=== PATIENT | male | born 1995 | race Hispanic/Latino ===

== ENCOUNTER 2018-02-03 10:17 | Inpatient (IN) | payer SELFPAY ==
[2018-02-03 11:12] LABS: #Eosinphils 0.2 thou/uL (0.0-0.7); #Lymphocytes 1.3 thou/uL (1.20-3.40); #Monocytes 0.7 thou/uL (0.11-0.59); %Basophils 0.4 % (0.0-1.0); %Lymphocytes 12.8 % (21.0-51.0); %Monocytes 6.9 % (0.0-10.0); %Neutrophils 77.9 % (42.0-75.0); Mean Corpuscular HGB CONC 34.7 g/dL (32.0-36.0); Mean Corpuscular Hemoglobin 30.3 pg (27.0-31.0); Mean Corpuscular Volume 87.4 fl (80.0-94.0); Mean Platelet Volume 7.5 fL (7.4-10.4); Platelet Count 224 thou/uL (130-400); RBC Distribution Width 11.7 % (11.5-14.5); Red Blood Cell (RBC) Count 5.29 mill/uL (4.70-6.10); White Blood Cell (WBC) Count 10.2 thou/uL (4.8-10.8)
[2018-02-03 11:33] LABS: ALT (SGPT) 13 U/L (8-55); AST (SGOT) 17 U/L (5-34); Albumin 4.8 g/dL (3.5-5.0); Alkaline Phosphatase 96 U/L (40-150); Anion Gap 13 mmol/L (10-20); BUN (Urea Nitrogen) 14 mg/dL (8.9-20.6); Bilirubin, Total 0.8 mg/dL (0.2-1.2); Calc. Creatinine Clearance 0 mL/min (70-130); Carbon Dioxide 25 mmol/L (22-29); Chloride 100 mmol/L (98-107); Estimated GFR-MDRD Greater than 90; Globulin 3.6 g/dL (2.4-3.5); Glucose 166 mg/dL (70-105); Protein, Total 8.4 g/dL (6.0-8.3); Sodium 134 mmol/L (136-145)
[2018-02-03] MEDS ORDERED: cefTRIAXone\\ROCEPHIN 2 GM VIAL ONE (11:37)
--- NOTE | 2018-02-03 12:18 | RAD ---
RIGHT FOOT THREE VIEWS: HISTORY: Right foot wound. FINDINGS: Lisfranc joint alignment is anatomic. Pes planus is evident on the lateral view. No acute fracture, dislocation, or soft tissue gas is apparent. No aggressive osseous erosion. Soft tissue swelling i s suggested about the forefoot. IMPRESSION: 1. Soft tissue swelling. 2. Pes planus. 3. No acute osseous abnormalities demonstrated. POS: [facility]
[2018-02-03] MEDS ORDERED: Acetaminophen 325 MG TAB PO PRN (12:52)
[2018-02-03] MEDS ORDERED: Ondansetron HCl/PF 4 MG/2 ML Vial IVP PRN (12:52)
[2018-02-03] MEDS ORDERED: Ondansetron ODT 4 MG TAB SL PRN (12:52)
[2018-02-03 13:18] VITALS: BMI 24.0
[2018-02-04] MEDS ORDERED: HYDROcodone/Acetaminophen 5/325 mg Tablet PO PRN (08:13)
[2018-02-04] MEDS ORDERED: Acetaminophen 325 MG TAB PO PRN (08:13)
[2018-02-04] MEDS ORDERED: Ondansetron ODT 4 MG TAB PO PRN (08:13)
[2018-02-04] MEDS ORDERED: Ondansetron HCl/PF 4 MG/2 ML Vial IVP PRN (08:13)
[2018-02-04 08:29] LABS: #Eosinphils 0.4 thou/uL (0.0-0.7); #Lymphocytes 1.8 thou/uL (1.20-3.40); #Monocytes 0.8 thou/uL (0.11-0.59); #Neutrophils 3.7 thou/uL (1.40-6.50); %Basophils 0.1 % (0.0-1.0); %Eosinophils 6.6 % (0.0-10.0); %Lymphocytes 26.4 % (21.0-51.0); %Monocytes 12.3 % (0.0-10.0); %Neutrophils 54.6 % (42.0-75.0); Mean Corpuscular HGB CONC 34.7 g/dL (32.0-36.0); Mean Corpuscular Hemoglobin 30.2 pg (27.0-31.0); Mean Corpuscular Volume 87.1 fl (80.0-94.0); Platelet Count 221 thou/uL (130-400); RBC Distribution Width 11.7 % (11.5-14.5); Red Blood Cell (RBC) Count 4.95 mill/uL (4.70-6.10); White Blood Cell (WBC) Count 6.8 thou/uL (4.8-10.8)
[2018-02-04 08:53] LABS: Anion Gap 14 mmol/L (10-20); BUN (Urea Nitrogen) 16 mg/dL (8.9-20.6); Calc. Creatinine Clearance 124 mL/min (70-130); Calcium 9.8 mg/dL (7.8-10.44); Carbon Dioxide 26 mmol/L (22-29); Chloride 104 mmol/L (98-107); Estimated GFR-MDRD Greater than 90; Glucose 91 mg/dL (70-105); Potassium 4.8 mmol/L (3.5-5.1); Sodium 139 mmol/L (136-145)
[2018-02-04] MEDS: Cefepime 2 GM in Sodium Chloride 0.9% 100 ML IVPB SCH ×2 (09:13→20:26)
[2018-02-04] MEDS: Sodium Chloride 0.9% 1,000 ML IV SCH (09:13)
[2018-02-04] MEDS: Famotidine 20 MG TAB PO SCH ×2 (09:21→20:25)
[2018-02-04] MEDS: HYDROcodone/Acetaminophen 5/325 mg Tablet PO PRN (10:48)
--- NOTE | 2018-02-04 12:03 | PDOC.PN ---
- Subjective Encounter Start Date: 02/04/18 Encounter Start Time: 08:45 follow up for cellulitis good. autumn,t no f/c, no N/V/D/C jeny abx, no aidan. draining more all systems reviewed and neg x as above - Objective Resuscitation Status: Resuscitation Status FULL:Full Resuscitation MAR Reviewed: Yes Vital Signs & Weight: Vital Signs (12 hours) Temp Pulse Resp BP Pulse Ox 02/04/18 11:33 98.2 F 65 18 117/55 L 98 02/04/18 08:00 98.1 F 62 18 02/04/18 07:40 98.1 F 62 18 108/63 98 02/04/18 04:00 98.1 F 60 14 106/54 L Weight Admit Weight 149 lb Weight 149 lb I&O: 02/03/18 02/04/18 02/05/18 06:59 06:59 06:59 Intake Total 360 10 Balance 360 10 Result Diagrams: 02/04/18 08:22 02/04/18 08:22 Phys Exam - Physical Examination Constitutional: NAD HEENT: PERRLA, moist MMs, sclera anicteric, oral pharynx no lesions Neck: no nodes, no JVD, supple, full ROM Respiratory: no wheezing, no rales, no rhonchi, clear to auscultation bilateral Cardiovascular: RRR Gastrointestinal: soft, non-tender, no distention, positive bowel sounds Musculoskeletal: no edema, pulses present Neurological: non-focal, normal sensation, moves all 4 limbs Lymphatic: no nodes Psychiatric: normal affect, A&O x 3 Skin: no rash, normal turgor, cap refill <2 seconds Deviation from normal: dorsal goot with purplish discoloraion, well demarcated, purulent drainage Dx/Plan (1) Cellulitis of right foot Code(s): L03.115 - CELLULITIS OF RIGHT LOWER LIMB Status: Acute (2) Abscess of right foot Code(s): L02.611 - CUTANEOUS ABSCESS OF RIGHT FOOT Status: Acute (3) Staph aureus infection Code(s): A49.01 - METHICILLIN SUSCEP STAPH INFECTION, UNSP SITE Status: Acute - Plan cont current plan of care, continue antibiotics wound care * .
--- NOTE | 2018-02-04 12:43 | HP ---
HISTORY OF PRESENT ILLNESS: A 22-year-old male, healthy, was barefoot four or five days ago and inju red his right foot. He frequently goes barefoot. He developed a worsening infection in his right fo ot with purulent drainage, was admitted to the hospital by Hospitalist Service. Plain x-rays were un remarkable for any bony involvement. White count was 10, hemoglobin 16. Basic metabolic profile nor mal. I have been asked to see regarding this infection. He has been started on vancomycin and cefep dedra. Cultures were submitted yesterday. Preliminary results Staphylococcus aureus. ALLERGIES: None. TOBACCO: Vapes. ALCOHOL: None, socially. MEDICATIONS: None routine. PAST SURGICAL/MEDICAL HISTORY: Noncontributory. REVIEW OF SYSTEMS: Ten point noncontributory. PHYSICAL EXAMINATION: VITAL SIGNS: 5 foot 6, 149 pounds, 24 BMI, 98.2, 65, 18, 117/55. LUNGS: Clear to auscultation. CARDIAC: Regular rate and rhythm without murmur or gallop. ABDOMEN: Soft, nontender, no masses. EXTREMITIES: Palpable femoral, popliteal, dorsalis pedis, posterior tibial pulses. Right second toe and the webspace between the second and great toe just adjacent to the second toe, there is an absce ss. Compression reveals purulent discharge. Probing with a Q-tip reveals undermining mostly plantar , but some towards the dorsum. ASSESSMENT AND PLAN: Right foot infection, traumatic injury. On vancomycin, cefepime and would ellie mmend bedside drainage. Patient is agreeable. We will plan that at the bedside.
--- NOTE | 2018-02-04 12:43 | OP ---
PREOPERATIVE DIAGNOSES: Right foot infection secondary to traumatic injury, infection between the ri ght second and first toe. POSTOPERATIVE DIAGNOSES: Right foot infection secondary to traumatic injury, infection between the r ight second and first toe with wound abscess cavity extending towards the plantar aspect of foot to t he dorsum of the foot. Purulent material evacuated in copious and submitted to pathology. ANESTHESIA: 1% Xylocaine with epinephrine mixed with 0.5% Marcaine with epinephrine mixed with bicar bonate. SURGEON: Adin Alva M.D. PROCEDURE IN DETAIL: At the patient's bedside in his room, alcohol prep and subsequent Betadine prep used and local anesthetic infiltrated into the skin and subcutaneous tissue and abscess cavity opene d between the second and third toes adjacent to the second and first toe adjacent to the second toe a nd using 11 blade scalpel abscess cavity opened. Copious purulent material evacuated and resubmitted for culture. Wound packed open, wet to dry dressing, sterile dressing applied. Patient tolerated t he procedure well.
[2018-02-04] MEDS: Vancomycin HCl 1 GM in Premix Bag 1 BAG IVPB SCH ×2 (14:12→21:32)
[2018-02-05] MEDS: Sodium Chloride 0.9% 1,000 ML IV SCH ×2 (03:00→18:15)
[2018-02-05 04:58] LABS: #Basophils 0.1 thou/uL (0.0-0.2); #Eosinphils 0.4 thou/uL (0.0-0.7); #Lymphocytes 1.7 thou/uL (1.20-3.40); #Monocytes 0.9 thou/uL (0.11-0.59); #Neutrophils 6.3 thou/uL (1.40-6.50); %Basophils 0.6 % (0.0-1.0); %Eosinophils 4.5 % (0.0-10.0); %Lymphocytes 18.3 % (21.0-51.0); %Neutrophils 66.5 % (42.0-75.0); Hemoglobin 14.9 g/dL (14.0-18.0); Mean Corpuscular HGB CONC 35.2 g/dL (32.0-36.0); Mean Corpuscular Hemoglobin 30.4 pg (27.0-31.0); Mean Corpuscular Volume 86.3 fl (80.0-94.0); Mean Platelet Volume 7.2 fL (7.4-10.4); Platelet Count 241 thou/uL (130-400); RBC Distribution Width 11.5 % (11.5-14.5); White Blood Cell (WBC) Count 9.4 thou/uL (4.8-10.8)
[2018-02-05 05:18] LABS: Anion Gap 11 mmol/L (10-20); BUN (Urea Nitrogen) 17 mg/dL (8.9-20.6); Calc. Creatinine Clearance 137 mL/min (70-130); Calcium 9.2 mg/dL (7.8-10.44); Carbon Dioxide 24 mmol/L (22-29); Chloride 106 mmol/L (98-107); Estimated GFR-MDRD Greater than 90; Glucose 96 mg/dL (70-105); Magnesium 1.8 mg/dL (1.6-2.6); Potassium 3.6 mmol/L (3.5-5.1); Sodium 137 mmol/L (136-145)
[2018-02-05] MEDS: Vancomycin HCl 1 GM in Premix Bag 1 BAG IVPB SCH ×3 (06:13→22:41)
[2018-02-05] MEDS: Famotidine 20 MG TAB PO SCH ×2 (09:28→20:17)
[2018-02-05] MEDS: Cefepime 2 GM in Sodium Chloride 0.9% 100 ML IVPB SCH ×2 (09:28→20:17)
[2018-02-05] MEDS: HYDROcodone/Acetaminophen 5/325 mg Tablet PO PRN (11:15)
[2018-02-05 13:32] LABS: Vancomycin, Trough 13.4 ug/mL
--- NOTE | 2018-02-05 23:09 | PDOC.PN ---
- Subjective Encounter Start Date: 02/05/18 Encounter Start Time: 10:30 Patient seen and examined for foot abscess. Pain controlled. No fever/diarrhea. No new complaints. No overnight events - Objective Resuscitation Status: Resuscitation Status FULL:Full Resuscitation MAR Reviewed: Yes Vital Signs & Weight: Vital Signs (12 hours) Temp Pulse Resp BP Pulse Ox 02/05/18 20:58 97.8 F 84 18 114/68 99 02/05/18 16:20 98.3 F 79 16 128/61 98 02/05/18 11:40 97.7 F 86 12 118/64 98 Weight Admit Weight 149 lb Weight 149 lb I&O: 02/04/18 02/05/18 02/06/18 06:59 06:59 06:59 Intake Total 360 3646 Output Total 750 Balance 360 3646 -750 Result Diagrams: 02/05/18 04:14 02/05/18 04:14 Additional Labs: Microbiology 02/03/18 11:45 Foot - Pending Bacterial Culture - Final Staphylococcus aureus Citrobacter koseri Radiology Reviewed by me: Yes (Rt foot XR - soft tissue swelling) Phys Exam - Physical Examination Constitutional: NAD Respiratory: no wheezing, no rhonchi Cardiovascular: RRR, no rub Gastrointestinal: soft, non-tender, positive bowel sounds Musculoskeletal: no edema Rt foot dressing + Neurological: moves all 4 limbs Dx/Plan (1) Abscess of right foot Code(s): L02.611 - CUTANEOUS ABSCESS OF RIGHT FOOT Status: Acute Comment: with cellulitis s/p I&D - Plan continue antibiotics, out of bed/ambulate, DVT proph w/SCDs Cont wound care -: DC home in AM if ok with Surgery Review of Systems - Review of Systems Cardiovascular: negative: chest pain, palpitations, orthopnea, paroxysmal nocturnal dyspnea, edema, light headedness, other Gastrointestinal: negative: Nausea, Vomiting, Abdominal Pain, Diarrhea, Constipation, Melena, Hematochezia, Other - Medications/Allergies Allergies/Adverse Reactions: Allergies Allergy/AdvReac Type Severity Reaction Status Date / Time No Known Allergies Allergy Verified 02/03/18 14:03 Medications: Current Medications Acetaminophen (Tylenol) 650 mg PO Q4H PRN PRN Reason: Headache/Fever or Pain Hydrocodone Bitart/Acetaminophen ([place] 5/325) 1 tab PO Q4H PRN PRN Reason: Moderate Pain (4-6) Last Admin: 02/05/18 11:15 Dose: 1 tab Hydrocodone Bitart/Acetaminophen ([place] 5/325) 2 tab PO Q4H PRN PRN Reason: Severe Pain (7-10) Famotidine (Pepcid) 20 mg PO BID [facility] Last Admin: 02/05/18 20:17 Dose: 20 mg Sodium Chloride (Normal Saline 0.9%) 1,000 mls @ 75 mls/hr IV .[id number] [facility] Last Admin: 02/05/18 18:15 Dose: 1,000 mls Cefepime HCl 2 gm/ Sodium (Chloride) 100 mls @ 200 mls/hr IVPB Q12HR [facility] Last Admin: 02/05/18 20:17 Dose: 100 mls Vancomycin HCl 1 gm/ Device 200 mls @ 200 mls/hr IVPB Q8HR [facility] Last Admin: 02/05/18 22:41 Dose: 200 mls Ondansetron HCl (Zofran Odt) 4 mg PO Q6H PRN PRN Reason: Nausea/Vomiting Ondansetron HCl (Zofran) 4 mg IVP Q6H PRN PRN Reason: Nausea/Vomiting
[2018-02-06] MEDS: Vancomycin HCl 1 GM in Premix Bag 1 BAG IVPB SCH (05:41)
[2018-02-06] MEDS: Sodium Chloride 0.9% 1,000 ML IV SCH (06:48)
[2018-02-06] MEDS: Famotidine 20 MG TAB PO SCH (09:26)
[2018-02-06] MEDS: Cefepime 2 GM in Sodium Chloride 0.9% 100 ML IVPB SCH (09:26)
[2018-02-06 11:45] VITALS: BP 119/73; TEMP 97.9
[2018-02-06] MEDS ORDERED: Sulfameth/Trimethoprim DS 800-160mg TAB PO SCH ×2 (12:15→21:00)
--- NOTE | 2018-02-06 16:11 | DIS ---
DATE OF DISCHARGE: 02/06/2018 DISCHARGE DISPOSITION: Home. FOLLOWUP: Follow up with primary care physician at [facility] in 1 week. Follow up with Dr Magdalena Alva on 02/10/2018 at 8:30 a.m. ALLERGIES: No known drug allergies. DISCHARGE MEDICATION: Bactrim double strength 1 tablet twice a day for next week. BRIEF HOSPITAL COURSE: The patient is a 22-year-old male presented to the hospital with worsening sw elling in his right foot with purulent discharge after a recent injury. Please refer to the history and physical for further details. The patient was admitted to the hospital with a diagnosis of right foot cellulitis with abscess. He underwent an incision and drainage by Dr. Alva. The cultures from the abscess was consistent with Staphylococcus and Citrobacter sensitive to Bactrim. He was on vancomycin and cefepime that has been changed to Bactrim at discharge. He appears stable for discharge. He is comfortable with wound car e at home. FINAL DIAGNOSES: 1. Right foot cellulitis with abscess, status post incision and drainage. 2. Mild hyponatremia with sodium 134, resolved. Plan of care was discussed with the patient in detail. He stated understanding.
== END 2018-02-06 15:15 | disposition home or self-care (01) | DRG 603 ==
LOC: ERS 10:17 → OBSVTOIN 11:55 → 2SW 11:55 → SURG A 02-05 22:06
PROVIDERS: ADMIT Internal Medicine Infectious Disease; ATTEND Internal Medicine Infectious Disease
PROC: 0Y9M0ZZ Drainage of Right Foot, Open Approach (ICD-10-PCS; principal; 2018-02-04)
DX: L02.611 Cutaneous abscess of right foot (principal); L03.115 Cellulitis of right lower limb; E87.1 Hypo-osmolality and hyponatremia; S99.921A Unspecified injury of right foot, initial encounter; X58.XXXA Exposure to other specified factors, initial encounter; B95.61 Methicillin susceptible Staphylococcus aureus infection as the cause of diseases classified elsewhere; B96.89 Other specified bacterial agents as the cause of diseases classified elsewhere
CPT/HCPCS: 36415; 80048; 80053; 80202; 83605; 83735; 85025; 87040; 87070; 87077; 87186; 87205; 96365; 96367; J0692; J0696; J3370; J7050